=== PATIENT | male | born 1995 | race Two or more races ===

== ENCOUNTER 2017-11-23 11:23 | Emergency (ER) | payer SELFPAY ==
[~2017-11-23] VITALS: Ht 175.3 cm; Wt 82.8 kg
[2017-11-23 13:01] VITALS: BP 111/61
== END 2017-11-23 13:33 | disposition home or self-care (01) ==
LOC: ER 11:23
DX: S76.012A Strain of muscle, fascia and tendon of left hip, initial encounter (principal); S40.862A Insect bite (nonvenomous) of left upper arm, initial encounter; W57.XXXA Bitten or stung by nonvenomous insect and other nonvenomous arthropods, initial encounter; Y93.89 Activity, other specified; Y92.89 Other specified places as the place of occurrence of the external cause; Y99.8 Other external cause status